=== PATIENT | male | born 1955 | race Caucasian/White ===

== ENCOUNTER 2017-01-27 06:20 | Day surgery (SDC) | payer BC ==
[~2017-01-27 06:20] MED LIST: LACTATED RINGERS 1,000 ML ONE
[2017-01-27 07:00] VITALS: O2SAT 96
[2017-01-27] MEDS ORDERED: PROPOFOL 200 MG/20 ML VIAL IV ONE (07:00)
--- NOTE | 2017-01-27 08:10 | OP ---
DATE OF PROCEDURE: 01/27/17 PREOPERATIVE DIAGNOSIS: 1. Colon cancer screen. POSTOPERATIVE DIAGNOSIS: 1. Single colonic polyp in the proximal transverse colon. 2. Internal hemorrhoids. PROCEDURE: 1. Colonoscopy with polypectomy. SURGEON: Ben Camargo MD. ANESTHESIA: MAC by Anand Pedraza CRNA. ESTIMATED BLOOD LOSS: Less than 1 mL. COMPLICATIONS: None apparent. TECHNIQUE: After informed consent was obtained from the patient, the patient was taken to the Endoscopy Suite and put in the left lateral decubitus position. After adequate IV sedation was obtained, a digital rectal exam was performed which revealed normal sphincter tone, no intraluminal masses, and a smooth, 1+, anodular prostate. The colonoscope was then passed with good visualization all the way through the colon. The bowel prep was good. The cecum was identified by the presence of ileocecal valve and appendiceal orifice. The scope was then withdrawn slowly over the next 10 minutes and a good look at the mucosa was obtained. A single, small, irritated area in the proximal end of the transverse colon was identified and this is probably an early polyp formation. It was removed piecemeal with the cold biopsy forceps and had good hemostasis. The scope was withdrawn the rest of the way. The patient was noted to have some internal hemorrhoids. The scope was removed. The patient tolerated the procedure well. The patient was transported to the outpatient area in good condition. His blood sugar was 115 prior to initiating the procedure and we will check it in recovery as well. His followup with me in two weeks. #[id number] [facility]ITAL[facility]andra
[2017-01-27 08:12] VITALS: TEMP 97.6
[2017-01-27 08:14] VITALS: BP 112/72
== END 2017-01-27 08:20 | disposition home or self-care (01) ==
LOC: AMB 06:20
PROVIDERS: ATTEND Family Medicine
DX: Z12.11 Encounter for screening for malignant neoplasm of colon (principal); D12.3 Benign neoplasm of transverse colon; K64.8 Other hemorrhoids; E11.9 Type 2 diabetes mellitus without complications; E78.00 Pure hypercholesterolemia, unspecified; I10 Essential (primary) hypertension; I25.10 Atherosclerotic heart disease of native coronary artery without angina pectoris; E78.2 Mixed hyperlipidemia; G47.33 Obstructive sleep apnea (adult) (pediatric); N40.1 Benign prostatic hyperplasia with lower urinary tract symptoms; R35.0 Frequency of micturition; R39.12 Poor urinary stream; Z95.5 Presence of coronary angioplasty implant and graft; Z87.891 Personal history of nicotine dependence; Z79.84 Long term (current) use of oral hypoglycemic drugs; Z79.82 Long term (current) use of aspirin; Z79.4 Long term (current) use of insulin; Z79.899 Other long term (current) drug therapy
CPT/HCPCS: 00810; 36416; 45380; 82948; J3490; J7120

== ENCOUNTER → 2017-10-17 | Outpatient (CLI) | payer BC | END | disposition home or self-care (01) | LOC: GMAJ 10:56 | PROVIDERS: ATTEND Family Medicine | DX: Z12.5 Encounter for screening for malignant neoplasm of prostate (principal) ==

== ENCOUNTER → 2019-01-09 | Outpatient (CLI) | payer OTHER | LOC: GMAJ 11:13 | PROVIDERS: ATTEND Family Medicine | DX: N40.1 Benign prostatic hyperplasia with lower urinary tract symptoms (principal); I10 Essential (primary) hypertension; E78.2 Mixed hyperlipidemia; E11.9 Type 2 diabetes mellitus without complications ==